=== PATIENT | male | born 1965 | race Caucasian/White ===

== ENCOUNTER 2024-10-17 19:07 | Inpatient (IN) | payer MEDICARE, MEDICAID ==
[~2024-10-17] VITALS: Ht 188 cm; Wt 74.9 kg
--- NOTE | 2024-10-17 19:29 | ED.PDOC ---
History of Present Illness HPI Comments 59 year old male presents to the ED via EMS with a chief complaint of ALOC onset today (10/17/24). Per EMS, patient is being transferred from [facility] due to ALOC and osteomyelitis. Patient was found unresponsive by family member, 911 was called, upon EMS arrival BS was 52, patient was altered. Patient had a partial RT foot amputation. PMHx dementia, CVA, DM. Denies chest pain, shortness of breath, abdominal pain, nausea, vomiting, diarrhea. No other symptoms or modifying factors present at this time. Chief Complaint: ALOC Time Seen by MD: 19:20 Reviewed Notes: Medications, Allergies Allergies: Coded Allergies: NO KNOWN ALLERGIES (Unverified , 10/17/24) Information Source: Patient, Emergency Med Personnel Mode of Arrival: EMS Severity: Moderate Timing: Hours Duration: Since onset Prehospital treatment: Oxygen Vital Signs Vital Signs Date Time Temp Pulse Resp B/P (MAP) Pulse Ox O2 Delivery O2 Flow Rate FiO2 10/17/24 20:20 80 10/17/24 19:45 97.5 16 166/74 (104) 97 97.5 10/17/24 19:45 Nasal Cannula* 2 28 Physical Exam General: Awake, alert and oriented. No acute distress. Skin: Skin in warm, dry and intact without rashes or lesions. HEENT: The head is normocephalic and atraumatic. Conjunctivae are clear without exudates or hemorrhage. Sclera is non-icteric. Neck: Normal range of motion. No JVD. Cardiac: Regular rate Respiratory: No signs of respiratory distress. No Stridor. Extremities: Right foot dressing place. Neurological: The patient is awake, alert and oriented to person, place, and time with normal speech. Speech is clear. There is no facial asymmetry. Psychiatric: Appropriate mood and affect. Good judgement and insight. Review of Systems: REVIEW OF SYSTEMS: No fever, no chills, or fatigue HEENT: No sore throat, no earache, no congestion, no neck pain. Cardiac: No chest pain. No palpitations. Lungs: No shortness of breath, no cough. GI: No nausea, no vomiting, no diarrhea, no constipation, no abdominal pain : No dysuria, frequency, or urgency. No hematuria. Musculoskeletal: No joint pain , no joint swelling, no extremity edema. Skin: No rash, no itching. Neuro: No headache, no dizziness, no weakness Past Medical History PAST MEDICAL HISTORY: CVA, Dementia, DM Surgical History (Other): RT foot partial amputation Family History Family History: Reviewed,noncontributory to illness, No family hx of Cancer, No family hx of DM, No family hx of Heart shelia, No family hx of HTN, No family hx ofKidney shelia, No family hx of Liver shelia, No family hx of Lung shelia, No family hx of Stroke Social History Smoker: Non-Smoker Alcohol: Denies ETOH Use Drugs: Denies Drug Use Lives In: Home Was a procedure done? Was a procedure done?: No EKG EKG : Pulse Rate (adult): 80 Cardiac Rhythm: NSR Hypertrophy: LVH Comments No STEMI Differential Dx Considerations may include: Differential diagnosis includes but is not limited to sepsis, cellulitis, os teomyelitis, uncontrolled diabetes, pneumonia, pulmonary embolism, other X-Ray, Labs, Meds, VS Vital Signs Date Time Temp Pulse Resp B/P (MAP) Pulse Ox O2 Delivery O2 Flow Rate FiO2 10/17/24 20:20 80 10/17/24 20:00 79 10/17/24 19:45 97.5 82 16 166/74 (104) 97 97.5 10/17/24 19:45 16 99 Nasal Cannula* 2 28 10/17/24 19:41 80 10/17/24 19:22 97.6 79 20 160/58 (92) 99 97.6 Lab Test 10/17/24 19:53 10/17/24 19:26 Range/Units White Blood Count 7.8 4.4-10.8 10^3/uL Red Blood Count 3.87 L 4.5-5.90 10^6/uL Hemoglobin 11.0 L 13.5-17.5 g/dL Hematocrit 33.6 L 41.0-53.0 % Mean Corpuscular Volume 86.9 80.0-100.0 fL Mean Corpuscular Hemoglobin 28.5 28.0-32.0 pg Mean Corpuscular Hemoglobin Concent 32.8 32.0-36.0 g/dL Red Cell Distribution Width 15.6 H 11.8-14.3 % Platelet Count 321 140-450 10^3/uL Mean Platelet Volume 6.9 6.9-10.8 fL Neutrophils (%) (Auto) 60.3 37.0-80.0 % Lymphocytes (%) (Auto) 27.9 10.0-50.0 % Monocytes (%) (Auto) 9.2 0.0-12.0 % Eosinophils (%) (Auto) 1.7 0.0-7.0 % Basophils (%) (Auto) 0.9 0.0-2.0 % Neutrophils # (Auto) 4.7 1.6-8.6 10 ^3/uL Lymphocytes # (Auto) 2.2 0.4-5.4 10 ^3/uL Monocytes # (Auto) 0.7 0-1.3 10 ^3/uL Eosinophils # (Auto) 0.1 0-0.8 10 ^3/uL Basophils # (Auto) 0.1 0-0.2 10 ^3/uL Nucleated Red Blood Cells 0.0 % Sodium Level 144 136-145 mmol/L Potassium Level 4.3 3.5-5.1 mmol/L Chloride Level 113 H 98-107 mmol/L Carbon Dioxide Level 22 20-31 mmol/L Anion Gap 9 5-15 Blood Urea Nitrogen 36 H 9-23 mg/dL Creatinine 1.66 H 0.700-1.30 mg/dL Glomerular Filtration Rate Calc 47 >90 mL/min BUN/Creatinine Ratio 21.7 H 10.0-20.0 Serum Glucose 353 H 74-106 mg/dL Lactic Acid Level 1.0 0.4-2.0 mmol/L Calcium Level 9.2 8.7-10.4 mg/dL Total Bilirubin 0.2 0.2-1.0 mg/dL Aspartate Amino Transferase (AST) 19 13-40 U/L Alanine Aminotransferase (ALT) 18 7-40 U/L Alkaline Phosphatase 100 46-116 U/L Total Protein 7.0 5.7-8.2 g/dL Albumin 3.9 3.2-4.8 g/dL Plasma/Serum Blood Alcohol < 3.0 <10 mg/dL POC Glucose 325 H 70-106 mg/dl Time of 1ST Reevaluation: 19:50 Reevaluation 1ST: Unchanged Patient Education/Counseling: Need For Follow Up Family Education/Counseling: No Family Present Departure 1 Departure Time of Disposition: 19:30 Impression: Primary Impression: Cellulitis Additional Impression: Osteomyelitis Disposition: 09 ADMITTED INPATIENT Condition: Stable Comments 59-year-old male with a history of diabetes, presents to the emergency department as a transfer from [facility] with right f oot osteomyelitis. Patient transferred for surgery an MRI services. Patient was started on vancomycin and Zosyn at [facility]. Labs and imaging reports reviewed. Patient admitted to hospitalist service for further treatment, evaluation and monitoring. Extensive evaluation was performed in attempt to identify or rule out: (See differential diagnosis section) The following tests were ordered, and results were reviewed by me and discussed with patient: (See diagnostic results section) The following test were independently interpreted by me: N/A I reviewed and agreed with the following test results read by other providers: N/A I reviewed the following notes from the pt's past medical encounters: Encounter notes from 10/17/2024 at [facility] Additional information was gathered from interviewing the following independent historians: EMS personnel Discussion of management or test interpretation with external physician/other qualified health career education teacher: N/A Addressed an acute or chronic illness that poses a threat to life or bodily function: Cellulitis, osteomyelitis Decision regarding hospitalization or escalation of hospital level of care: Risk and benefits of admission for further treatment of patient's condition was considered. Due to patient's current clinical condition, high risk of decline and poor outcome if discharged and need for further inpatient management and monitoring, patient will be admitted to the hospital. Drug therapy requiring intensive monitoring for toxicity: N/A Parenteral controlled substances: N/A Decision regarding elective major surgery with identified patient or procedure risk factors: N/A Decision regarding emergency major surgery: N/A Decision not to resuscitate or to de-escalate care because of poor prognosis: N/A Diagnosis or treatment significantly limited by social determinants of health: N/A Critical Care Note Critical Care Time?: No Stability Stability form required: No I personally scribed for DEVIN BROWNLEE MD ([email or web address]) on 10/17/24 at 19:29. Electronically submitted by Adore Chavez ([email or web address]). I personally scribed for DEVIN BROWNLEE MD ([email or web address]) on 10/17/24 at 20:20. Electronically submitted by Adore Chavez ([email or web address]). DEVIN BROWNLEE MD October 17, 2024 19:29
[2024-10-17 19:45] VITALS: RESP 16; O2SAT 99
[2024-10-17 20:15] LABS: Basophils # (auto) 0.1 10 ^3/uL (0-0.2); Basophils % (auto) 0.9 % (0.0-2.0); Eosinophils # (auto) 0.1 10 ^3/uL (0-0.8); Eosinophils % (auto) 1.7 % (0.0-7.0); Hematocrit 33.6 % (41.0-53.0); Lymphocytes # (auto) 2.2 10 ^3/uL (0.4-5.4); Lymphocytes % (auto) 27.9 % (10.0-50.0); Mean Corpuscular Hemoglobin 28.5 pg (28.0-32.0); Mean Corpuscular Hgb Conc. 32.8 g/dL (32.0-36.0); Mean Corpuscular Volume 86.9 fL (80.0-100.0); Monocytes # (auto) 0.7 10 ^3/uL (0-1.3); Monocytes % (auto) 9.2 % (0.0-12.0); Neutrophils # (auto) 4.7 10 ^3/uL (1.6-8.6); Neutrophils % (auto) 60.3 % (37.0-80.0); Platelet Count (auto) 321 10^3/uL (140-450); Red Blood Cells 3.87 10^6/uL (4.5-5.90); Red Cell Distribution Width 15.6 % (11.8-14.3); White Blood Cell 7.8 10^3/uL (4.4-10.8)
[2024-10-17 20:30] LABS: Alanine Aminotransferase 18 U/L (7-40); Albumin 3.9 g/dL (3.2-4.8); Alkaline Phosphatase 100 U/L (46-116); Anion Gap 9 (5-15); Aspartate Aminotransferase 19 U/L (13-40); BUN/Creatinine Ratio 21.7 (10.0-20.0); Calcium 9.2 mg/dL (8.7-10.4); Carbon Dioxide 22 mmol/L (20-31); Potassium 4.3 mmol/L (3.5-5.1); Sodium 144 mmol/L (136-145)
[2024-10-17 20:34] LABS: Bilirubin, Total 0.2 mg/dL (0.2-1.0); Blood Alcohol < 3.0 mg/dL (<10); Blood Urea Nitrogen 36 mg/dL (9-23); Chloride 113 mmol/L (98-107); Glucose 353 mg/dL (74-106)
[2024-10-17] MEDS: ACCU-CHEK COMFORT CURVE STRIP VI ONE (21:45)
[2024-10-17] MEDS: DEXTROSE (50%) 50ML SYRG IV ONE (21:45)
[2024-10-17] MEDS ORDERED: VANCOMYCIN PER PHARMACY 0 MG IV SCH (21:45)
[2024-10-17] MEDS ORDERED: ACETAMINOPHEN 325 MG TAB PO PRN (21:45)
[2024-10-17 22:05] VITALS: PULSE 85; RESP 13; O2SAT 99
[2024-10-17] MEDS ORDERED: DEXTROSE (50%) 50ML SYRG IV PRN (22:15)
[2024-10-17] MEDS: InsuLIN REG 1unit/0.01ml Soln (100units/ml) SC ONE (23:07)
[2024-10-17] MEDS: INSULIN LANTUS (GLARGINE) 1 /0.01ml (100units/ml) SC SCH (23:08)
[2024-10-17] MEDS: VANCOMYCIN 1GM/200ML PM 200 ML IV ONE (23:11)
[2024-10-17] MEDS: traZODone HCL 50 MG TAB PO SCH (23:25)
--- NOTE | 2024-10-17 23:35 | DVHHP2 ---
History of Present Illness Reason for Visit: acute metabolic encephalopathy History of Present Illness 59-year-old male with a past medical history of dementia, CVA, and diabetes mellitus, presenting with acute altered mental status. According to EMS, the patient was found unresponsive at home by a family member, who called 911. On EMS arrival, his blood glucose was noted to be 52. He was transferred from [facility], where the initial concern was for ALOC and right foot osteomyelitis. The patient has a history of right foot partial amputation. He denies chest pain, shortness of breath, abdominal pain, nausea, vomiting, and diarrhea. No additional modifying factors identified. Past Medical History: Dementia Cerebrovascular accident Diabetes mellitus (uncontrolled) Right foot amputation Past Surgical History: Right foot partial amputation Social History Smoker: Non-Smoker Alcohol: Denies ETOH Use Drugs: Denies Drug Use Lives In: Home Review of Systems Allergies: Coded Allergies: NO KNOWN ALLERGIES (Unverified , 10/17/24) Medications Current Medications Medications Dose Ordered Sig/Benoit Route Start Time Stop Time Status Last Admin Dose Admin Acetaminophen 650 mg Q6HP PRN PO 10/17/24 21:45 Acetaminophen/ Hydrocodone Bitart 1 tab Q4HP PRN PO 10/17/24 21:45 Enoxaparin Sodium 40 mg DAILY SC 10/18/24 10:00 Insulin Glargine 15 units HS SC 10/17/24 22:00 10/17/24 23:08 15 UNITS Ceftriaxone Sodium 50 ml @ 100 mls/hr DAILY@09 IV 10/18/24 09:00 Vancomycin HCl 0 ml @ 0 mls/hr UD IV 10/17/24 21:45 Amlodipine Besylate 5 mg DAILY PO 10/18/24 10:00 Bupropion HCl 150 mg BID PO 10/18/24 10:00 Trazodone HCl 100 mg HS PO 10/17/24 22:00 10/17/24 23:25 100 MG Diagnostic Test (Pha) 1 strip ACHS 10/18/24 07:00 Insulin Human Regular ACHS SC 10/18/24 07:00 Dextrose 50 ml UD PRN IV 10/17/24 22:15 Exam Vital Signs Vital Signs Date Time Temp Pulse Resp B/P (MAP) Pulse Ox O2 Delivery O2 Flow Rate FiO2 10/17/24 22:05 97.5 85 13 179/76 (110) 99 97.5 Exam Skin: Warm, dry, intact; no rashes or lesions HEENT: Normocephalic, atraumatic. Conjunctiva clear, sclera non-icteric Neck: No JVD, full range of motion Cardiac: RRR, no murmurs Respiratory: No distress, no stridor GI: Soft, non-tender, no guarding or rebound, no organomegaly : Not assessed Extremities: Right foot dressing in place Neuro: Alert and oriented to person, place, and time. Clear speech, no facial asymmetry Psych: Appropriate affect, good judgment and insight MSK: No deformity or tenderness noted Back: No CVA tenderness Labs/Xrays Labs Test 10/17/24 22:50 10/17/24 19:53 Range/Units POC Glucose 359 H 70-106 mg/dl White Blood Count 7.8 4.4-10.8 10^3/uL Red Blood Count 3.87 L 4.5-5.90 10^6/uL Hemoglobin 11.0 L 13.5-17.5 g/dL Hematocrit 33.6 L 41.0-53.0 % Mean Corpuscular Volume 86.9 80.0-100.0 fL Mean Corpuscular Hemoglobin 28.5 28.0-32.0 pg Mean Corpuscular Hemoglobin Concent 32.8 32.0-36.0 g/dL Red Cell Distribution Width 15.6 H 11.8-14.3 % Platelet Count 321 140-450 10^3/uL Mean Platelet Volume 6.9 6.9-10.8 fL Neutrophils (%) (Auto) 60.3 37.0-80.0 % Lymphocytes (%) (Auto) 27.9 10.0-50.0 % Monocytes (%) (Auto) 9.2 0.0-12.0 % Eosinophils (%) (Auto) 1.7 0.0-7.0 % Basophils (%) (Auto) 0.9 0.0-2.0 % Neutrophils # (Auto) 4.7 1.6-8.6 10 ^3/uL Lymphocytes # (Auto) 2.2 0.4-5.4 10 ^3/uL Monocytes # (Auto) 0.7 0-1.3 10 ^3/uL Eosinophils # (Auto) 0.1 0-0.8 10 ^3/uL Basophils # (Auto) 0.1 0-0.2 10 ^3/uL Nucleated Red Blood Cells 0.0 % Sodium Level 144 136-145 mmol/L Potassium Level 4.3 3.5-5.1 mmol/L Chloride Level 113 H 98-107 mmol/L Carbon Dioxide Level 22 20-31 mmol/L Anion Gap 9 5-15 Blood Urea Nitrogen 36 H 9-23 mg/dL Creatinine 1.66 H 0.700-1.30 mg/dL Glomerular Filtration Rate Calc 47 >90 mL/min BUN/Creatinine Ratio 21.7 H 10.0-20.0 Serum Glucose 353 H 74-106 mg/dL Lactic Acid Level 1.0 0.4-2.0 mmol/L Calcium Level 9.2 8.7-10.4 mg/dL Total Bilirubin 0.2 0.2-1.0 mg/dL Aspartate Amino Transferase (AST) 19 13-40 U/L Alanine Aminotransferase (ALT) 18 7-40 U/L Alkaline Phosphatase 100 46-116 U/L Total Protein 7.0 5.7-8.2 g/dL Albumin 3.9 3.2-4.8 g/dL Plasma/Serum Blood Alcohol < 3.0 <10 mg/dL Assessment/Plan Assessment/Plan #Acute metabolic encephalopathy due to hypoglycemia and possible sepsis #Sepsis due to RT foot osteomyelitis #Uncontrolled diabetes mellitus #Ho Stroke #Ho dementia #MARIANO due to VMN, no baseline creatinine #Anxiety #Depression #Severe deconditioning Admit Telemetry Diabetic diet Podiatry consult Wound consult PT evaluation Ceftriaxone + Vancomycin Amlodipine Lantus 15 UI SC ISS Enoxaparin SC Trazodone Bupropion Case dicussed with Dr Turner Full code Plan discussed with: Patient, Other (rn) My Orders Orders - NAIDA INIGUEZ RESIDENT Procedure Category Date Status Time Admit ADMIT 10/17/24 Transmitted 21:32 Code Status CODE 10/17/24 Transmitted 21:32 Vital Signs AURA 10/17/24 In Process 21:32 Review Orders With AURA 10/17/24 In Process Adm. 21:32 Consistent DIET 10/18/24 Transmitted Carb(Ccho)Diabetes Breakfast Acetaminophen Tablet PHA 10/17/24 In Process (Tylenol Tablet) 21:45 Notify Of Changes AURA 10/17/24 In Process From Base 21:32 Advance Directive AURA 5/7/25 In Process 21:32 Patient Condition ORDERS 10/17/24 Transmitted 21:32 Allergies AURA 10/17/24 In Process 21:32 Hydrocodone-Acet PHA 10/17/24 In Process 5/325mg Tab (Argyle 21:45 Enoxaparin Sodium PHA 10/18/24 In Process (Lovenox) 10:00 Insulin Lantus PHA 10/17/24 In Process (Glargine) (Lantus) 22:00 Glucose Blood PHA 10/17/24 In Process (Accu-Chek Comfort 21:45 Ceftriaxone 1gm/50ml PHA 10/18/24 In Process D5w (Rocephin) 09:00 Vancomycin Per PHA 10/17/24 In Process Pharmacy 21:45 Bupropion Tablet PHA 10/18/24 In Process (Wellbutrin Tablet) 10:00 Trazodone Hcl PHA 10/17/24 In Process (Desyrel) 22:00 * Wound Consult CONS 10/17/24 Transmitted Wound Culture W/ Gs ISELA 10/17/24 Logged 21:36 *Podiatry Consult CONS 10/17/24 Transmitted Musson(Dvmg) 21:36 Amlodipine Tablet PHA 10/18/24 In Process (Norvasc Tablet) 10:00 Vancomycin,Random LAB 10/18/24 Verified 04:00 Glucose Blood PHA 10/18/24 In Process (Accu-Chek Comfort 07:00 Dextrose 50% Syringe PHA 10/17/24 In Process 22:15 Insulin R (Human) PHA 10/18/24 In Process (Insulin R) 07:00 Date of Service: October 17, 2024 Billing Provider: OSEAS TURNER MD Common Visit Codes: 59974-WQOQDPF INP/OBS CARE (HIGH) Secondary Visit Codes: 26735-CECRAWPJ CARE PLAN 30 MINUTES NAIDA INIGUEZ October 17, 2024 23:35
[2024-10-17 23:50] VITALS: BP 157/63
[2024-10-18] VITALS (9 sets, daily range): BP systolic 136–169; BP diastolic 55–76; PULSE 70–79; RESP 16–18; TEMP 97.2–99.1; O2SAT 96–100
[2024-10-18] MEDS: ACCU-CHEK COMFORT CURVE STRIP VI SCH ×2 (06:01→11:49)
[2024-10-18] MEDS: InsuLIN REG 1unit/0.01ml Soln (100units/ml) SC SCH ×2 (06:26→12:00)
--- NOTE | 2024-10-18 06:39 | ECG ---
[facility] Test Date: 2024-10-17 Test Time: 19:41:46 Pat Name: MELODY CHERRY Department: ED Room: 0219T B Gender: M Note Specialist: CHUCK : 1965 Requested By: DEVIN BROWNLEE Order Number: [id number] Reading MD: Jacinto Wright Measurements Intervals [place] Rate: 80 P: -7 WI: 159 QRS: 48 QRSD: 98 T: 80 QT: 392 QTc: 453 Interpretive Statements Sinus rhythm RSR' in V1 or V2, probably normal variant Left ventricular hypertrophy Baseline wander in lead(s) V3 Electronically Signed On 10-18-2024 21:10:52 PDT by Jacinto Wright Please click the below link to view image of tracing.
[2024-10-18 06:45] LABS: Basophils # (auto) 0.1 10 ^3/uL (0-0.2); Basophils % (auto) 1.8 % (0.0-2.0); Eosinophils # (auto) 0.3 10 ^3/uL (0-0.8); Eosinophils % (auto) 4.6 % (0.0-7.0); Hematocrit 31.9 % (41.0-53.0); Hemoglobin 10.3 g/dL (13.5-17.5); Lymphocytes # (auto) 2.1 10 ^3/uL (0.4-5.4); Lymphocytes % (auto) 31.5 % (10.0-50.0); Mean Corpuscular Hemoglobin 27.7 pg (28.0-32.0); Mean Corpuscular Hgb Conc. 32.2 g/dL (32.0-36.0); Mean Corpuscular Volume 85.8 fL (80.0-100.0); Monocytes # (auto) 0.7 10 ^3/uL (0-1.3); Monocytes % (auto) 10.9 % (0.0-12.0); Neutrophils # (auto) 3.4 10 ^3/uL (1.6-8.6); Neutrophils % (auto) 51.2 % (37.0-80.0); Platelet Count (auto) 317 10^3/uL (140-450); Red Blood Cells 3.71 10^6/uL (4.5-5.90); Red Cell Distribution Width 15.6 % (11.8-14.3); White Blood Cell 6.7 10^3/uL (4.4-10.8)
[2024-10-18 06:55] LABS: Alanine Aminotransferase 16 U/L (7-40); Albumin 3.7 g/dL (3.2-4.8); Alkaline Phosphatase 90 U/L (46-116); Anion Gap 10 (5-15); Aspartate Aminotransferase 15 U/L (13-40); BUN/Creatinine Ratio 23.2 (10.0-20.0); Carbon Dioxide 23 mmol/L (20-31); Potassium 3.8 mmol/L (3.5-5.1); Total Protein 6.7 g/dL (5.7-8.2)
[2024-10-18 07:01] LABS: Blood Urea Nitrogen 36 mg/dL (9-23); Chloride 112 mmol/L (98-107); Glucose 328 mg/dL (74-106); Sodium 145 mmol/L (136-145)
[2024-10-18 07:02] LABS: Bilirubin, Total 0.2 mg/dL (0.2-1.0); Calcium 8.6 mg/dL (8.7-10.4)
[2024-10-18] MEDS: amLODIPine BESYLATE 5 MG TAB PO SCH (08:30)
[2024-10-18] MEDS: buPROPion HCL 75 MG TAB PO SCH (08:30)
[2024-10-18] MEDS: ENOXAPARIN SOD 40 MG/0.4 ML SYRINGE SC SCH (08:30)
[2024-10-18] MEDS: cefTRIAXone 1GM/50ML D5W 50 ML IV SCH (08:30)
[2024-10-18 08:36] LABS: INR 1.08 (0.9-1.15); Partial Thromboplastin Time 29.3 SEC (24.5-34.5); Prothrombin Time 11.4 sec (9.3-11.8)
[2024-10-18 08:54] LABS: Free T4 (Free Thyroxine) 1.23 ng/dL (0.89-1.76); T3 Total 0.85 ng/mL (0.60-1.81)
--- NOTE | 2024-10-18 09:01 | DVH ---
CHEST RADIOGRAPH Indication: pre op, pain Technique: Single frontal view of the chest was obtained Comparison: None FINDINGS: Lines and Tubes: None Lungs: No focal consolidation. Pleura: No effusion. No pneumothorax. Cardiomediastinal contours: Unremarkable Bones: No acute osseous abnormality. IMPRESSION: No acute cardiopulmonary disease.
--- NOTE | 2024-10-18 09:17 | DVHPNRES ---
Progress Note Date Seen: October 18, 2024 Resident Creating Document: CASSIE BAUMANN RESIDENT Medical Necessity Reason Pt with a Central, PICC or Fol: No Subjective Review of Systems Dayanara Fleming a six 18-year-old with a PMH of dementia, CVA, type 1 DM presented to the ED with a chief complaints of AMS. According to EMS, the patient was found unresponsive at home by a family member, who called 911. On EMS arrival, his blood glucose was noted to be 52. He was transferred from [facility], where the initial concern was for ALOC and right foot osteomyelitis. The patient has a history of right foot partial amputation. He denies chest pain, shortness of breath, abdominal pain, nausea, vomiting, and diarrhea. No additional modifying factors identified. PMH: Dementia, CVA, type 1 DM, chronic diabetic foot wound PSH: Right foot all toes amputation Family history: Reviewed, noncontributory Personal history: Lives at home. Denies smoking, alcohol and other drug abuse Allergies: No known allergies Patient seen and examined at the bedside. Patient is drowsy but able to answer few questions but slowly. At this time patient reported no new complaints. Three views right foot CT from [facility] showed findings/ to 0 five to mellitus and 5th metatarsal. Consulted Podiatry for further evaluation Patient currently on vancomycin, Rocephin Flagyl and Changes from previous H/P or p: No Changes Objective vital signs Vital Sign Date Time Temp Pulse Resp B/P (MAP) Pulse Ox O2 Delivery O2 Flow Rate FiO2 10/18/24 08:30 148/78 10/18/24 05:00 97.7 79 17 99 97.7 10/18/24 00:28 Nasal Cannula* 2 28 Total Intake and Output 10/17/24 10/17/24 10/18/24 15:00 23:00 07:00 Intake Total 700 ml Balance 700 ml medications Current Medications Medications Dose Ordered Sig/Benoit Route Start Time Stop Time Status Last Admin Dose Admin Acetaminophen 650 mg Q6HP PRN PO 10/17/24 21:45 Acetaminophen/ Hydrocodone Bitart 1 tab Q4HP PRN PO 10/17/24 21:45 Enoxaparin Sodium 40 mg DAILY SC 10/18/24 10:00 10/18/24 08:30 40 MG Ceftriaxone Sodium 50 ml @ 100 mls/hr DAILY@09 IV 5/8/25 09:00 10/18/24 08:30 100 MLS/HR Vancomycin HCl 0 ml @ 0 mls/hr UD IV 10/17/24 21:45 Amlodipine Besylate 5 mg DAILY PO 10/18/24 10:00 10/18/24 08:30 5 MG Bupropion HCl 150 mg BID PO 10/18/24 10:00 10/18/24 08:30 150 MG Trazodone HCl 100 mg HS PO 10/17/24 22:00 10/17/24 23:25 100 MG Diagnostic Test (Pha) 1 strip ACHS 10/18/24 07:00 10/18/24 06:01 1 STRIP Insulin Human Regular ACHS SC 10/18/24 07:00 10/18/24 06:26 8 UNITS Dextrose 50 ml UD PRN IV 10/17/24 22:15 Insulin Glargine 15 units BID SC 10/18/24 10:00 Metronidazole 100 ml @ 100 mls/hr Q8HR IV 10/18/24 14:00 Hydralazine HCl 10 mg Q6HP PRN IV 10/18/24 08:30 Examination Pt is lying on bed General Appearance: Alert,But not fully Oriented, Cooperative, Not in acute distress HEENT: Atraumatic, Mucous membranes moist/pink Respiratory: Clear to auscultation, Normal air movement, No added sounds Cardiovascular: Regular rate, Normal S1, Normal S2, No murmurs Abdominal: Active bowel sounds, Soft, no distention, no tenderness Extremities: right foot wrapped in bandage Neuro: Normal speech, sensorimotor deficits none Psych/Mental Status: Mental status NL, Mood NL Nurse was there as kevinerone during examination laboratory and microbiology Laboratory Tests 10/18/24 05:45 Test 10/18/24 05:45 Range/Units Serum Glucose 328 H 74-106 mg/dL Labs and/or images reviewed: Labs reviewed by me, Image(s) reviewed by me Problem List/Assessment/Plan Problem List/Assessment/Plan # Acute metabolic encephalopathy due to hypoglycemia # Sepsis can not be ruled out # RT foot osteomyelitis # Chronic diabetic foot ulcer # Uncontrolled type 1 DM with HbA1c 8.9 - Three views right foot CT from [facility] showed findings/ to 0 five to mellitus and 5th metatarsal. - Consulted Podiatry for further evaluation - Patient currently on vancomycin, Rocephin Flagyl - Accu-Cheks and ISS - Lantus 15 units - wound consult and wound/ blood cultures -Head CT pending # uncontrolled hypertension/ hypertensive urgency - continuously monitor blood pressure - resume home medication amlodipine - hydralazine 10 mg IV p.r.n. if SBP more than 160 # MARIANO likely due to vasomotor unknown baseline creatinine - monitor lab for now - Please be cautious on nephrotoxic agents - kidney usg # history of CVA, dementia # severe deconditioning - delirium precautions # anxiety, depression - patient is on bupropion and trazodone No GI PPX needed Lovenox Diabetic diet if tolerates Goals of care discussed with the patient for more than 29 minutes: Full code status Case discussed with Dr. Prince, patient and RN Plan discussed with: Patient My Orders My Orders Orders - CASSIE BAUMANN RESIDENT Procedure Category Date Status Time Blood Culture ISELA 10/18/24 In Process 07:58 Metronidazole PHA 10/18/24 In Process 500mg/100ml (Flagyl 14:00 Urinalysis LAB 10/18/24 Logged 08:04 Chest Xray 1 View XY 10/18/24 Resulted 08:04 Hydralazine Injection PHA 10/18/24 In Process (Apresoline Inject 08:30 CASSIE BAUMANN RESIDENT October 18, 2024 09:17
[2024-10-18] MEDS: INSULIN LANTUS (GLARGINE) 1 /0.01ml (100units/ml) SC SCH (10:00)
[2024-10-18] MEDS ORDERED: DEXTROSE (50%) 50ML SYRG IV PRN (11:15)
--- NOTE | 2024-10-18 12:39 | DVH ---
INDICATION: severity of kidney damage TECHNIQUE: Multiple real-time sonographic images of the kidneys and bladder were obtained. COMPARISON: None FINDINGS: The right kidney measures 12 cm in length, which is normal in size. There is increased echo genicity of the right kidney. No hydronephrosis. Trace right perinephric fluid. The left kidney measures 11 cm in length, which is normal in size. There is increased echogenicity of the left kidney. No hydronephrosis. Urinary bladder is underdistended which limits evaluation. IMPRESSION: Echogenic bilateral kidneys suggestive of chronic medical renal disease. No hydronephrosis.
[2024-10-18] MEDS: metroNIDAZOLE 500MG/100ML 100 ML IV SCH (13:51)
[2024-10-18] MEDS: hydrALAZINE HCL 20 MG/ML VL IV PRN (14:08)
--- NOTE | 2024-10-18 14:20 | DVH ---
Bilateral Lower Extremity Arterial Duplex Date: 10/18/2024 11:23 AM Clinical History: PAD Comparison: None Findings: Duplex Doppler evaluation including color Doppler and spectral/pulsed waveform analysis of the lower extremity arteries was performed. There is diffuse atherosclerotic calcification disease. Biphasic waveforms in the right GEOLOGICAL DRAFTER, SFA and popliteal arteries. Monophasic waveform in the right yara salis pedis artery. Biphasic waveforms in the left GEOLOGICAL DRAFTER, SFA, popliteal arteries. Monophasic waveform in the left anterior tibial arteries. RIGHT: Peak systolic velocities are as follows: GEOLOGICAL DRAFTER 121 cm/s Deep femoral 133 cm/s SFA proximal 183 cm/s SFA mid-portion 103 cm/s SFA distal 82 cm/s Popliteal 79 cm/s Posterior tibial no flow visualized Dorsalis pedis 103 cm/s LEFT: Peak systolic velocities are as follows: GEOLOGICAL DRAFTER 126 cm/s Deep femoral 130 cm/s SFA proximal 125 cm/s SFA mid-portion 92 cm/s SFA distal 75 cm/s Popliteal 72 cm/s Posterior tibial no flow visualized Dorsalis pedis 121 cm/s IMPRESSION: 1. Findings of moderate to advanced peripheral arterial disease most pronounced within bilateral infr apopliteal/tibial vasculature. Occlusion of the bilateral posterior tibial arteries. High-grade steno ses of the bilateral anterior tibial / dorsalis pedis arteries. 2. Moderate grade stenosis of the proximal right SFA
[2024-10-18] MEDS ORDERED: AMLO1TAB22 PO (16:22)
[2024-10-18] MEDS ORDERED: BACL10TA PO (16:22)
[2024-10-18] MEDS ORDERED: ASPI-543 PO (16:22)
--- NOTE | 2024-10-18 16:26 | DVH ---
EXAM: CT HEAD WITHOUT CONTRAST INDICATION: Altered, fall TECHNIQUE: CT of the head without intravenous contrast. Radiation Dose Information: CT Dose: CTDI volume is 60.81 mGy. Dose-length product is 974.73 mGy*cm The dose indicators for CT are the volume Computed Tomography (CT) Dose Index (CTDIvol) and the Dose Length Product (DLP), and are measured in units of mGy and mGy-cm, respectively. These indicators are not patient dose, but values generated from the CT scanner acquisition factors. The report includes radiation exposure data for exposures received during this examination. COMPARISON: None FINDINGS: There is no evidence of acute intracranial hemorrhage, extra-axial collection, mass effect, midline s hift, herniation or hydrocephalus. The ventricles, sulci and cisterns are age appropriate. The newton-white differentiation is intact. Patchy periventricular and subcortical white matter hypoattenuation is nonspecific but may be related to small vessel ischemic disease. The visualized paranasal sinuses and mastoid air cells are clear. The surrounding soft tissues and osseous structures are unremarkable. IMPRESSION: No acute intracranial abnormality.
[2024-10-18] MEDS ORDERED: BENA5TAB9 PO (16:38)
--- NOTE | 2024-10-18 16:40 | DVHINCON2 ---
Date Seen: October 18, 2024 Reason for Consultation Foot wound History of Present Illness 59-year-old male with a past medical history of dementia, CVA, and diabetes mellitus, presenting with acute altered mental status. According to EMS, the patient was found unresponsive at home by a family member, who called 911. On EM S arrival, his blood glucose was noted to be 52. He was transferred from [facility], where the initial concern was for ALOC and right foot osteomyelitis. The patient has a history of right foot partial amputation. He denies chest pain, shortness of breath, abdominal pain, nausea, vomiting, and diarrhea. No additional modifying factors identified. Past Medical History See H&P Past Surgical History See H&P Family History: Diabetes mellitus G8 MOTHER G8 FATHER Allergies: Coded Allergies: NO KNOWN ALLERGIES (Unverified , 10/17/24) Home Meds Reported Medications Baclofen (Baclofen) 10 Mg Tab, 10 MG PO Q8HP for 30 Days, MG 10/18/24 Aspirin (Aspir-Low) 81 Mg Tab, 81 MG PO DAILY for 30 Days, MG 10/18/24 Amlodipine Besylate (Amlodipine Besylate) 5 Mg Tab, 5 MG PO BID for 30 Days, MG 10/18/24 Current Medications Current Medications Medications (Trade) Dose Ordered Sig/Benoit Route PRN Reason Start Time Stop Time Status Last Admin Acetaminophen (Tylenol Tablet) 650 mg Q6HP PRN PO PAIN SCALE 1-3 OR TEMP>100.4 10/17/24 21:45 Acetaminophen/ Hydrocodone Bitart ([place] 5/325MG Tab) 1 tab Q4HP PRN PO MODERATE PAIN (4-6 PAIN SCALE) 10/17/24 21:45 Enoxaparin Sodium (Lovenox) 40 mg DAILY SC 10/18/24 10:00 10/18/24 08:30 Insulin Glargine (Lantus) 15 units HS SC 10/17/24 22:00 10/18/24 06:46 DC 10/17/24 23:08 Ceftriaxone Sodium 50 ml @ 100 mls/hr DAILY@09 IV 10/18/24 09:00 10/18/24 08:30 Vancomycin HCl 0 ml @ 0 mls/hr UD IV 10/17/24 21:45 Amlodipine Besylate (Norvasc Tablet) 5 mg DAILY PO 10/18/24 10:00 10/18/24 08:30 Bupropion HCl (Wellbutrin Tablet) 150 mg BID PO 10/18/24 10:00 10/18/24 08:30 Trazodone HCl (Desyrel) 100 mg HS PO 10/17/24 22:00 10/17/24 23:25 Diagnostic Test (Pha) (Accu-Chek Comfort Curve T) 1 strip ACHS 10/18/24 07:00 10/18/24 11:07 DC 10/18/24 06:01 Insulin Human Regular (InsuLIN R) ACHS SC 10/18/24 07:00 10/18/24 11:07 DC 10/18/24 06:26 Dextrose 50 ml UD PRN IV Blood Sugar LESS THAN 60 10/17/24 22:15 10/18/24 11:07 DC Insulin Glargine (Lantus) 15 units BID SC 10/18/24 10:00 10/18/24 10:00 Metronidazole 100 ml @ 100 mls/hr Q8HR IV 10/18/24 14:00 10/18/24 13:51 Hydralazine HCl (Apresoline Injection) 10 mg Q6HP PRN IV SBP>160 10/18/24 08:30 10/18/24 14:08 Diagnostic Test (Pha) (Accu-Chek Comfort Curve T) 1 strip Q6HR 10/18/24 12:00 10/18/24 11:49 Insulin Human Regular (InsuLIN R) Q6HR SC 10/18/24 12:00 10/18/24 12:00 Dextrose 50 ml UD PRN IV Blood Sugar LESS THAN 60 10/18/24 11:15 Vital Signs Vital Signs Date Time Temp Pulse Resp B/P (MAP) Pulse Ox O2 Delivery O2 Flow Rate FiO2 10/18/24 14:08 164/82 10/18/24 13:00 97.2 75 18 99 97.2 10/18/24 08:00 Nasal Cannula* 2 28 Physical Exam Dermatological: Skin is dry with mild erythema and some maceration around the wound site No gross deformities noted Mild non-pitting edema present bilaterally amputation and eschar on the right foot with cellulitis streaking Vascular: Dorsalis pedis and posterior tibial Nonpalpable bilaterally Capillary refill is under 2 seconds Skin temperature is warm bilaterally Neurologic: Protective sensation is absent on the plantar forefoot bilaterally Monofilament testing reveals decreased sensation in multiple plantar sites Musculoskeletal: Range of motion at the ankle and MTP joints is within normal limits. Strength is 5/5 in all tested muscle groups. Gait is antalgic due to offloading of the affected limb. Labs/Diagnostic Data Labs Test 10/18/24 12:17 10/18/24 10:55 10/18/24 05:45 10/17/24 19:53 Range/Units HIV (1&2) Antibody Negative Negative POC Glucose 160 H 70-106 mg/dl White Blood Count 6.7 4.4-10.8 10^3/uL Red Blood Count 3.71 L 4.5-5.90 10^6/uL Hemoglobin 10.3 L 13.5-17.5 g/dL Hematocrit 31.9 L 41.0-53.0 % Mean Corpuscular Volume 85.8 80.0-100.0 fL Mean Corpuscular Hemoglobin 27.7 L 28.0-32.0 pg Mean Corpuscular Hemoglobin Concent 32.2 32.0-36.0 g/dL Red Cell Distribution Width 15.6 H 11.8-14.3 % Platelet Count 317 140-450 10^3/uL Mean Platelet Volume 7.2 6.9-10.8 fL Neutrophils (%) (Auto) 51.2 37.0-80.0 % Lymphocytes (%) (Auto) 31.5 10.0-50.0 % Monocytes (%) (Auto) 10.9 0.0-12.0 % Eosinophils (%) (Auto) 4.6 0.0-7.0 % Basophils (%) (Auto) 1.8 0.0-2.0 % Neutrophils # (Auto) 3.4 1.6-8.6 10 ^3/uL Lymphocytes # (Auto) 2.1 0.4-5.4 10 ^3/uL Monocytes # (Auto) 0.7 0-1.3 10 ^3/uL Eosinophils # (Auto) 0.3 0-0.8 10 ^3/uL Basophils # (Auto) 0.1 0-0.2 10 ^3/uL Nucleated Red Blood Cells 0.0 % Prothrombin Time 11.4 9.3-11.8 sec Prothrombin Time INR 1.08 0.9-1.15 Activated Partial Thromboplast Time 29.3 24.5-34.5 SEC Sodium Level 145 136-145 mmol/L Potassium Level 3.8 3.5-5.1 mmol/L Chloride Level 112 H 98-107 mmol/L Carbon Dioxide Level 23 20-31 mmol/L Anion Gap 10 5-15 Blood Urea Nitrogen 36 H 9-23 mg/dL Creatinine 1.55 H 0.700-1.30 mg/dL Glomerular Filtration Rate Calc 51 >90 mL/min BUN/Creatinine Ratio 23.2 H 10.0-20.0 Serum Glucose 328 H 74-106 mg/dL Hemoglobin A1c 8.9 H <5.7 % A1C Calcium Level 8.6 L 8.7-10.4 mg/dL Total Bilirubin 0.2 0.2-1.0 mg/dL Aspartate Amino Transferase (AST) 15 13-40 U/L Alanine Aminotransferase (ALT) 16 7-40 U/L Alkaline Phosphatase 90 46-116 U/L Total Protein 6.7 5.7-8.2 g/dL Albumin 3.7 3.2-4.8 g/dL Thyroid Stimulating Hormone (TSH) 0.42 L 0.55-4.78 uIU/mL Free Thyroxine (T4) Calculated 1.23 0.89-1.76 ng/dL Total Triiodothyronine (TT3) 0.85 0.60-1.81 ng/mL Random Vancomycin Level 19.8 H 5-10 ug/mL Lactic Acid Level 1.0 0.4-2.0 mmol/L Plasma/Serum Blood Alcohol < 3.0 <10 mg/dL Problems(with codes): (1) Cellulitis (2) Osteomyelitis (3) Family history of diabetes mellitus Plan/Recommendation ASSESSMENT: Patient is a [age] year old seen on the floor for a worsening ulcer PLAN: - The patients chart was reviewed, clinical findings were discussed with the patient, the etiologies of the conditions were discussed in detail, and a treatment plan was agreed to at this time, with both oral and written instructions provided. - reviewed advanced imaging - recommend we get vascular involved in a CTA lower extremity - continue IV antibiotics - would not perform anything surgical or any debridements until adequate blood flow All questions were answered and concerns addressed to the patient's satisfaction. The patient was given the phone number to the clinic and was told how to make contact with the clinic should any concerns or questions arise. Patient understands that if any questions or concerns arise prior to the next appointment, we should be contacted immediately. FOLLOW-UP: Continue to follow while inpatient Plan discussed with: Patient Date of Service: October 18, 2024 Billing Provider: BETSY ELLIS DPM Common Visit Codes: CONSULT ONLY Consultation Codes: [id number] CONSULT <80MIN BETSY ELLIS DPM October 18, 2024 16:40
[2024-10-18] MEDS ORDERED: INSLISPI SC (16:57)
[2024-10-18] MEDS ORDERED: LEVO50TA7 PO (16:57)
[2024-10-18] MEDS ORDERED: INSUINJ37 SC (16:57)
[2024-10-18] MEDS ORDERED: LISI2.5T47 PO (16:57)
[2024-10-18] MEDS ORDERED: ROSU20TA14 PO (16:57)
[2024-10-18] MEDS ORDERED: GABA-1308 PO (16:57)
[2024-10-18] MEDS ORDERED: CARV-216 PO (16:57)
[2024-10-18] MEDS ORDERED: HYDR25TA87 PO (16:57)
[2024-10-18] MEDS ORDERED: BUPR-413 PO (16:57)
[2024-10-18] MEDS ORDERED: PANT1INJ3 IV (16:57)
[2024-10-18] MEDS ORDERED: HYDR50TA32 PO (16:57)
[2024-10-19] VITALS (8 sets, daily range): BP systolic 159–180; BP diastolic 64–77; PULSE 68–83; RESP 16–19; TEMP 97.8–99; O2SAT 93–98
[2024-10-19 06:19] LABS: Basophils # (auto) 0.2 10 ^3/uL (0-0.2); Basophils % (auto) 1.8 % (0.0-2.0); Eosinophils # (auto) 0.6 10 ^3/uL (0-0.8); Eosinophils % (auto) 6.8 % (0.0-7.0); Hematocrit 32.8 % (41.0-53.0); Lymphocytes # (auto) 2.7 10 ^3/uL (0.4-5.4); Lymphocytes % (auto) 32.3 % (10.0-50.0); Mean Corpuscular Hemoglobin 28.2 pg (28.0-32.0); Mean Corpuscular Hgb Conc. 33.4 g/dL (32.0-36.0); Mean Corpuscular Volume 84.3 fL (80.0-100.0); Monocytes # (auto) 0.8 10 ^3/uL (0-1.3); Monocytes % (auto) 9.9 % (0.0-12.0); Neutrophils # (auto) 4.1 10 ^3/uL (1.6-8.6); Neutrophils % (auto) 49.2 % (37.0-80.0); Platelet Count (auto) 350 10^3/uL (140-450); Red Cell Distribution Width 15.5 % (11.8-14.3); White Blood Cell 8.3 10^3/uL (4.4-10.8)
[2024-10-19 06:26] LABS: Alanine Aminotransferase 12 U/L (7-40); Albumin 3.6 g/dL (3.2-4.8); Alkaline Phosphatase 80 U/L (46-116); Anion Gap 12 (5-15); Aspartate Aminotransferase 18 U/L (13-40); BUN/Creatinine Ratio 21.5 (10.0-20.0); Carbon Dioxide 22 mmol/L (20-31); Magnesium 1.7 mg/dL (1.6-2.6); Sodium 144 mmol/L (136-145); Total Protein 6.5 g/dL (5.7-8.2)
[2024-10-19 06:41] LABS: Bilirubin, Total 0.2 mg/dL (0.2-1.0); Blood Urea Nitrogen 28 mg/dL (9-23); Calcium 8.6 mg/dL (8.7-10.4); Chloride 110 mmol/L (98-107); Glucose 55 mg/dL (74-106); Potassium 3.4 mmol/L (3.5-5.1)
[2024-10-19] MEDS: POTASSIUM EFFERVESENT TAB 25 MEQ PO ONE (08:52)
[2024-10-19] MEDS: HYDROcodone-ACET 5/325MG TAB PO PRN (08:53)
[2024-10-19] MEDS ORDERED: DEXTROSE (50%) 50ML SYRG IV PRN (10:45)
[2024-10-19] MEDS: LORazepam 2MG/ML-1ML VIAL IM ONE (10:47)
[2024-10-19] MEDS: ACCU-CHEK COMFORT CURVE STRIP VI SCH (11:30)
[2024-10-19] MEDS ORDERED: IOHEXOL 350 MG/ML 100ML IJ ONE ×2 (11:48→12:13)
[2024-10-19] MEDS: InsuLIN REG 1unit/0.01ml Soln (100units/ml) SC SCH (12:57)
--- NOTE | 2024-10-19 13:46 | DVH ---
Indication: to evaluate PAD Technique: CT axial images of the pelvis and lower are obtained without contrast. Coronal and sagitta l reformats were obtained. Radiation Dose Information: CTDI volume is 8.43 mGy. Dose-length product is 1130.76 mGy*cm Comparison: None FINDINGS: The infrarenal abdominal aorta demonstrates extensive atherosclerotic calcification disease. The righ t common, external iliac arteries demonstrate no high-grade stenoses. The left common and external il iac arteries demonstrate no high-grade stenosis. Right FOREX TRADER demonstrates mild less than 50% stenosis. The right SFA demonstrates multifocal moderate t o severe stenosis, 50 to 80%. The right popliteal artery demonstrates multifocal moderate to high-gr crystal stenosis, 50 80%. The right anterior tibial artery is patent to the level of the ankle. Right po sterior tibial artery is occluded. Right tibioperoneal artery demonstrates high-grade stenosis up to 90% stenosis. Right peroneal artery demonstrates multifocal moderate high-grade stenosis, up to 90% . The left FOREX TRADER demonstrates mild less than 50% stenosis. Right SFA demonstrates multifocal moderate gr crystal stenosis, 50-70% stenosis. Left popliteal artery demonstrates multifocal moderate high-grade sten osis, 50 90% most pronounced along the distal left popliteal artery. The left posterior tibial arter ies occluded. Left anterior tibial artery is patent to the level of the left ankle. Left tibioperone al trunk demonstrates high-grade stenosis, 80-90% stenosis. Left peroneal artery demonstrates mild le ss than 50% stenosis. Large volume stool within the colon. Bladder distended. Large volume stool in the rectum. Presacral edema. Bilateral femur intertrochanteric screws, intramedullary rods. Moderate bilateral sacroiliac degenera tive joint disease. Moderate to severe degenerative changes of the bilateral hips. IMPRESSION: 1. Severe peripheral arterial disease involving the bilateral SFA, popliteal, tibioperoneal, posterio r tibial arteries as described. This includes occlusion of the bilateral posterior tibial arteries. M ultifocal moderate high-grade stenoses of the bilateral SFA and popliteal arteries. Single-vessel run off to the bilateral feet through the anterior tibial arteries 2. Large volume stool within the colon, especially in the rectum.
--- NOTE | 2024-10-19 14:30 | DVHPNRES ---
Progress Note Date Seen: October 19, 2024 Resident Creating Document: CASSIE BAUMANN RESIDENT Medical Necessity Reason Pt with a Central, PICC or Fol: No Subjective Review of Systems Patient seen and examined at the bedside. Patient reported mild improvement in his pain but reported no new complaints. Lower extremity duplex showed severe PID, Podiatry excellence consultant evaluated the patient and advised to do CT angiogram of aorta and lower extremities. which showed Severe peripheral arterial disease involving the bilateral SFA, popliteal, tibioperoneal, posterior tibial arteries, consulted vascular surgeon. Patient reports: No new complaints Objective vital signs Vital Sign Date Time Temp Pulse Resp B/P (MAP) Pulse Ox O2 Delivery O2 Flow Rate FiO2 10/19/24 08:54 170/71 10/19/24 05:00 98.6 70 16 98 98.6 10/18/24 20:00 Room Air* 0 21 Total Intake and Output 10/18/24 10/18/24 10/19/24 15:00 23:00 07:00 Intake Total 900 ml 300 ml Output Total 550 ml Balance 900 ml -250 ml medications Current Medications Medications Dose Ordered Sig/Benoit Route Start Time Stop Time Status Last Admin Dose Admin Acetaminophen 650 mg Q6HP PRN PO 10/17/24 21:45 Acetaminophen/ Hydrocodone Bitart 1 tab Q4HP PRN PO 10/17/24 21:45 10/19/24 12:54 1 TAB Enoxaparin Sodium 40 mg DAILY SC 10/18/24 10:00 10/19/24 08:52 40 MG Ceftriaxone Sodium 50 ml @ 100 mls/hr DAILY@09 IV 10/18/24 09:00 10/19/24 08:51 100 MLS/HR Vancomycin HCl 0 ml @ 0 mls/hr UD IV 10/17/24 21:45 Amlodipine Besylate 5 mg DAILY PO 10/18/24 10:00 10/19/24 08:54 5 MG Bupropion HCl 150 mg BID PO 10/18/24 10:00 10/19/24 08:53 150 MG Trazodone HCl 100 mg HS PO 10/17/24 22:00 10/18/24 21:40 100 MG Insulin Glargine 15 units BID SC 10/18/24 10:00 10/19/24 12:56 15 UNITS Metronidazole 100 ml @ 100 mls/hr Q8HR IV 10/18/24 14:00 10/19/24 14:15 100 MLS/HR Hydralazine HCl 10 mg Q6HP PRN IV 10/18/24 08:30 10/19/24 02:52 10 MG Diagnostic Test (Pha) 1 strip ACHS 10/19/24 11:30 10/19/24 11:30 1 STRIP Insulin Human Regular ACHS SC 10/19/24 11:30 10/19/24 12:57 2 UNITS Dextrose 50 ml UD PRN IV 10/19/24 10:45 Vancomycin HCl 250 ml @ 200 mls/hr Q24H IV 10/19/24 16:00 Examination Pt is lying on bed General Appearance: Alert,But not fully Oriented, Cooperative, Not in acute distress HEENT: Atraumatic, Mucous membranes moist/pink Respiratory: Clear to auscultation, Normal air movement, No added sounds Cardiovascular: Regular rate, Normal S1, Normal S2, No murmurs Abdominal: Active bowel sounds, Soft, no distention, no tenderness Extremities: right foot wrapped in bandage Neuro: Normal speech, sensorimotor deficits none Psych/Mental Status: Mental status NL, Mood NL Nurse was there as sharperone during examination laboratory and microbiology Laboratory Tests 10/19/24 05:14 Test 10/19/24 05:14 Range/Units Serum Glucose 55 #L 74-106 mg/dL Microbiology Date/Time Source Procedure Growth Status 10/18/24 08:41 Blood Blood Culture - Preliminary NO GROWTH AFTER 24 HOURS OF INCUBATION. Resulted Labs and/or images reviewed: Labs reviewed by me, Image(s) reviewed by me Problem List/Assessment/Plan Problem List/Assessment/Plan # Acute metabolic encephalopathy due to hypoglycemia # Sepsis can not be ruled out # RT foot osteomyelitis # Chronic diabetic foot ulcer # Uncontrolled type 1 DM with HbA1c 8.9 # severe PAD of bilateral SFA, popliteal, tibioperoneal, posterior tibial arteries - Three views right foot CT from [facility] showed findings/ to 0 five to mellitus and 5th metatarsal. - Consulted Podiatry for further evaluation - Patient currently on vancomycin, Rocephin Flagyl - Accu-Cheks and ISS - Lantus 10 units - wound consult and wound/ blood cultures - Head CT no acute abnormalities - CT angio of aorta and lower extremities. which showed Severe peripheral arterial disease involving the bilateral SFA, popliteal, tibioperoneal, posterior tibial arteries, consulted vascular surgeon. # uncontrolled hypertension/ hypertensive urgency - continuously monitor blood pressure - resume home medication amlodipine - hydralazine 10 mg IV p.r.n. if SBP more than 160 # MARIANO likely due to vasomotor unknown baseline creatinine - monitor lab for now - Please be cautious on nephrotoxic agents - kidney usg # history of CVA, dementia # severe deconditioning - delirium precautions # anxiety, depression - patient is on bupropion and trazodone No GI PPX needed Lovenox Diabetic diet if tolerates Goals of care discussed with the patient for more than 29 minutes: Full code status Case discussed with Dr. Prince, patient and RN Plan discussed with: Patient My Orders My Orders Orders - CASSIE BAUMANN RESIDENT Procedure Category Date Status Time * Surgical Consult CONS 10/18/24 Transmitted * Dietary Consult CONS 10/18/24 Transmitted 12:30 Podiatry Consult CONS 10/18/24 Transmitted 12:30 Cleanse Wound With AURA 10/18/24 In Process Wound Clean 12:30 Consult CONS 10/18/24 Transmitted Vascular/Endovascular 12:30 Potassium Effervesent PHA 10/19/24 In Process Tab (Klor-Con/Ef) 08:15 Ct Angio Abd Aorta W CT 10/19/24 Resulted Run Off 10:36 Glucose Blood PHA 10/19/24 In Process (Accu-Chek Comfort 11:30 Insulin R (Human) PHA 10/19/24 In Process (Insulin R) 11:30 Dextrose 50% Syringe PHA 10/19/24 In Process 10:45 CASSIE BAUMANN RESIDENT October 19, 2024 14:30
--- NOTE | 2024-10-19 16:05 | DVH ---
EXAM: XY R ELBOW 3 VIEW XRAY HISTORY: limited motion COMPARISON: None TECHNIQUE: Three views of the right elbow were performed. FINDINGS: No acute fracture or effusion are identified about the right elbow. No significant degenerative vega ges. The soft tissue images are very limited. The study is very limited due to motion artifact IMPRESSION: 1. Study with no fracture seen.
--- NOTE | 2024-10-19 16:35 | DVH ---
EXAM: US Duplex Right Upper Extremity Veins CLINICAL INDICATION: R/O DVT , RUE SWELLING. TECHNIQUE: Real-time duplex ultrasound scan of the right upper extremity veins integrating B-mode tw o-dimensional vascular structure, Doppler spectral analysis, color flow Doppler imaging and compressi on. COMPARISON: None FINDINGS: DEEP VEINS: Unremarkable. No DVT in the internal jugular, subclavian, axillary, or brachial veins. The veins demonstrate normal color flow, are normally compressible, with normal phasic flow and/or augmentation response. SUPERFICIAL VEINS: Thrombus in the cephalic vein of the forearm. SOFT TISSUES: No acute findings. OTHER FINDINGS: . IMPRESSION: Thrombus in the cephalic vein of the forearm.
[2024-10-19] MEDS: LACTULOSE 20Gm/30ML SOLN PO SCH (17:31)
[2024-10-19] MEDS: VANCOMYCIN 1.25GM/250ML 250 ML IV SCH (17:31)
[2024-10-19] MEDS: LORazepam 2MG/ML-1ML VIAL IV PRN (17:32)
--- NOTE | 2024-10-19 18:53 | DVH ---
US Rt Upper Ext Art Duplex Date: 10/19/2024 04:00 PM Clinical History: r/o obstruction of blood flow. hardening of the skin. Comparison: None Technique: Ultrasound right upper extremity arterial duplex Finding: RIGHT: Peak systolic velocities are as follows: Distal subclavian artery 104.4 cm/ biphasic Axillary artery: 170.3 cm/sec biphasic Dsistal brachial artery 278.2 cm/sec biphasic greater than 50% stenosis Radial artery: 56 cm/sec monophasic Distal radial artery: 22.8 cm/s Ulnar artery: 157.3 cm/sec biphasic greater than 50% stenosis at the ulnar artery. IMPRESSION: 1. There is greater than 50% stenosis in the right brachial artery and right ulnar artery. HS:Y
[2024-10-20] VITALS (8 sets, daily range): BP systolic 96–162; BP diastolic 60–73; PULSE 70–85; RESP 17–19; TEMP 97.2–97.8; O2SAT 94–97
[2024-10-20 07:16] LABS: Basophils # (auto) 0.1 10 ^3/uL (0-0.2); Basophils % (auto) 1.1 % (0.0-2.0); Eosinophils # (auto) 0.3 10 ^3/uL (0-0.8); Hematocrit 36.3 % (41.0-53.0); Hemoglobin 11.9 g/dL (13.5-17.5); Lymphocytes # (auto) 2.4 10 ^3/uL (0.4-5.4); Lymphocytes % (auto) 33.4 % (10.0-50.0); Mean Corpuscular Hgb Conc. 32.7 g/dL (32.0-36.0); Mean Corpuscular Volume 85.6 fL (80.0-100.0); Monocytes # (auto) 0.8 10 ^3/uL (0-1.3); Monocytes % (auto) 11.3 % (0.0-12.0); Neutrophils # (auto) 3.7 10 ^3/uL (1.6-8.6); Neutrophils % (auto) 50.2 % (37.0-80.0); Nucleated Red Blood Cells % 0.1 %; Platelet Count (auto) 382 10^3/uL (140-450); Red Blood Cells 4.24 10^6/uL (4.5-5.90); Red Cell Distribution Width 15.9 % (11.8-14.3); White Blood Cell 7.3 10^3/uL (4.4-10.8)
[2024-10-20 07:37] LABS: Alanine Aminotransferase 13 U/L (7-40); Alkaline Phosphatase 98 U/L (46-116); Anion Gap 12 (5-15); BUN/Creatinine Ratio 17.8 (10.0-20.0); Calcium 9.8 mg/dL (8.7-10.4); Carbon Dioxide 23 mmol/L (20-31); Potassium 3.6 mmol/L (3.5-5.1); Sodium 143 mmol/L (136-145)
[2024-10-20 07:38] LABS: Total Protein 7.5 g/dL (5.7-8.2)
[2024-10-20 07:39] LABS: Aspartate Aminotransferase 24 U/L (13-40)
[2024-10-20 07:44] LABS: Bilirubin, Total 0.3 mg/dL (0.2-1.0); Blood Urea Nitrogen 26 mg/dL (9-23); Chloride 108 mmol/L (98-107)
[2024-10-20 07:46] LABS: Glucose 37 mg/dL (74-106)
--- NOTE | 2024-10-20 16:08 | DVHPNRES ---
Progress Note Date Seen: October 20, 2024 Resident Creating Document: NUBIA JAMISON RESIDENT Medical Necessity Reason Pt with a Central, PICC or Fol: No Medical Necessity Reason Review of Systems Patient seen and examined at the bedside. Patient reported mild improvement in his pain but reported no new complaints. Lower extremity duplex showed severe PID, Podiatry hr business partner consultant evaluated the patient and advised to do CT angiogram of aorta and lower extremities. which showed Severe peripheral arterial disease involving the bilateral SFA, popliteal, tibioperoneal, posterior tibial arteries, consulted vascular surgeon. Patient reports: No new complaints. He was eating breakfast at my time to visit and assessment. He showed me a honey crusting blister on his right upper that developed since yesterday. He said he it was painful yesterday but a little better today. He is currently on Vancomycin, metronidazole and ceftriaxone. Will add clindamycin Subjective Review of Systems Constitutional: Denies fever no chills no feeling of malaise HEENT: Denies headache, ear pain, ear discharges, conjunctivitis, nasal discharge throat pain Cardiovascular: Denies chest pain, palpitation, orthopnea, PND, or pedal edema Respiratory: Denies shortness of breath, cough cough, sputum production, hemoptysis, GI: Denies abdominal pain, nausea, vomiting, diarrhea, hematemesis, hematochezia, : Denies frequency, urgency, hematuria, Endocrine: Denies unintentional weight gain or weight loss, feeling of hot flashes, Khoi: Denies easy bruising, bleeding disorders, epistaxis Musculoskeletal: right leg wrapped bandage Psych: No evidence of depression, sherri, suicidal ideation Objective vital signs Vital Sign Date Time Temp Pulse Resp B/P (MAP) Pulse Ox O2 Delivery O2 Flow Rate FiO2 10/20/24 09:03 162/63 10/20/24 09:00 97.4 76 17 95 97.4 10/20/24 08:00 Room Air* 0 21 Total Intake and Output 10/19/24 10/19/24 10/20/24 15:00 23:00 07:00 Intake Total 150 ml 950 ml 1040 ml Output Total 1200 ml 475 ml Balance 150 ml -250 ml 565 ml medications Current Medications Medications Dose Ordered Sig/Benoit Route Start Time Stop Time Status Last Admin Dose Admin Acetaminophen 650 mg Q6HP PRN PO 10/17/24 21:45 Acetaminophen/ Hydrocodone Bitart 1 tab Q4HP PRN PO 10/17/24 21:45 10/19/24 12:54 1 TAB Enoxaparin Sodium 40 mg DAILY SC 10/18/24 10:00 10/20/24 09:04 40 MG Ceftriaxone Sodium 50 ml @ 100 mls/hr DAILY@09 IV 10/18/24 09:00 10/20/24 09:03 100 MLS/HR Vancomycin HCl 0 ml @ 0 mls/hr UD IV 10/17/24 21:45 Amlodipine Besylate 5 mg DAILY PO 10/18/24 10:00 10/20/24 09:03 5 MG Bupropion HCl 150 mg BID PO 10/18/24 10:00 10/20/24 09:02 150 MG Trazodone HCl 100 mg HS PO 10/17/24 22:00 10/19/24 22:24 100 MG Insulin Glargine 15 units BID SC 10/18/24 10:00 10/20/24 10:08 15 UNITS Metronidazole 100 ml @ 100 mls/hr Q8HR IV 10/18/24 14:00 10/20/24 13:36 100 MLS/HR Hydralazine HCl 10 mg Q6HP PRN IV 10/18/24 08:30 10/19/24 17:32 10 MG Diagnostic Test (Pha) 1 strip ACHS 10/19/24 11:30 10/20/24 11:55 1 STRIP Insulin Human Regular ACHS SC 10/19/24 11:30 10/20/24 12:01 4 UNITS Dextrose 50 ml UD PRN IV 10/19/24 10:45 Vancomycin HCl 250 ml @ 200 mls/hr Q24H IV 10/19/24 16:00 10/19/24 17:31 200 MLS/HR Lactulose 30 ml DAILY PO 10/19/24 14:30 10/20/24 10:06 30 ML Lorazepam 1 mg Q6HP PRN IV 10/19/24 15:15 10/20/24 11:55 1 MG Examination Pt is sitting bed, eating breakfast General Appearance: Alert,But not fully Oriented, Cooperative, Not in acute distress HEENT: Atraumatic, Mucous membranes moist/pink Respiratory: Clear to auscultation, Normal air movement, No added sounds Cardiovascular: Regular rate, Normal S1, Normal S2, No murmurs Abdominal: Active bowel sounds, Soft, no distention, no tenderness Extremities: right foot wrapped in bandage, Right arm with honey crusted lesion with blister Neuro: Normal speech, sensorimotor deficits none Psych/Mental Status: Mental status NL, Mood NL Nurse was there as raquelne during examination laboratory and microbiology Laboratory Tests 10/20/24 06:12 Test 10/20/24 06:12 Range/Units Serum Glucose 37 *L 74-106 mg/dL Microbiology Date/Time Source Procedure Growth Status 10/18/24 08:41 Blood Blood Culture - Preliminary NO GROWTH AFTER 48 HOURS OF INCUBATION. Resulted Problem List/Assessment/Plan Problem List/Assessment/Plan Problem List/Assessment/Plan # Acute metabolic encephalopathy due to hypoglycemia # Sepsis can not be ruled out # RT foot osteomyelitis # Chronic diabetic foot ulcer # Uncontrolled type 1 DM with HbA1c 8.9 # severe PAD of bilateral SFA, popliteal, tibioperoneal, posterior tibial arteries - Three views right foot CT from [facility] showed findings/ to 0 five to mellitus and 5th metatarsal. - Consulted Podiatry for further evaluation - Patient currently on vancomycin, Rocephin Flagyl - Accu-Cheks and ISS - Lantus 10 units - wound consult and wound/ blood cultures - Head CT no acute abnormalities - CT angio of aorta and lower extremities. which showed Severe peripheral arterial disease involving the bilateral SFA, popliteal, tibioperoneal, posterior tibial arteries, consulted vascular surgeon. # uncontrolled hypertension/ hypertensive urgency - continuously monitor blood pressure - resume home medication amlodipine - hydralazine 10 mg IV p.r.n. if SBP more than 160 # MARIANO likely due to vasomotor unknown baseline creatinine - monitor lab for now - Please be cautious on nephrotoxic agents - kidney usg # history of CVA, dementia # severe deconditioning - delirium precautions # anxiety, depression - patient is on bupropion and trazodone Thrombus in the cephalic vein of the forearm. No GI PPX needed Lovenox Diabetic diet if tolerates Goals of care discussed with the patient for more than 16 minutes: Full code status Case discussed with Dr. Prince, patient and RN Plan discussed with: Patient YAQUELINNUBIA RESIDENT October 20, 2024 16:08
[2024-10-20] MEDS: CLINDAMYCIN 300MG IV 50 ML IV ONE (16:56)
[2024-10-20] MEDS: ENOXAPARIN SOD 80 MG/0.8ML SYRINGE SC SCH (21:36)
[2024-10-21] MEDS: CLINDAMYCIN 300MG IV 50 ML IV SCH
[2024-10-21 01:00] VITALS: BP 153/60; PULSE 78; RESP 18; TEMP 97.2; O2SAT 95
[2024-10-21 05:00] VITALS: BP_SYST 143; BP_SYST 147; BP_DIAS 57; BP_DIAS 90; PULSE 66; PULSE 69; RESP 17; RESP 18; TEMP 96.5; TEMP 97.5; O2SAT 95; O2SAT 98
[2024-10-21 06:22] LABS: Basophils # (auto) 0.1 10 ^3/uL (0-0.2); Basophils % (auto) 1.2 % (0.0-2.0); Eosinophils # (auto) 0.5 10 ^3/uL (0-0.8); Eosinophils % (auto) 5.7 % (0.0-7.0); Hematocrit 31.2 % (41.0-53.0); Hemoglobin 10.1 g/dL (13.5-17.5); Lymphocytes # (auto) 2.7 10 ^3/uL (0.4-5.4); Lymphocytes % (auto) 34.5 % (10.0-50.0); Mean Corpuscular Hemoglobin 27.6 pg (28.0-32.0); Mean Corpuscular Hgb Conc. 32.5 g/dL (32.0-36.0); Monocytes # (auto) 0.8 10 ^3/uL (0-1.3); Monocytes % (auto) 10.7 % (0.0-12.0); Neutrophils # (auto) 3.8 10 ^3/uL (1.6-8.6); Neutrophils % (auto) 47.9 % (37.0-80.0); Platelet Count (auto) 307 10^3/uL (140-450); Red Blood Cells 3.67 10^6/uL (4.5-5.90); Red Cell Distribution Width 15.5 % (11.8-14.3); White Blood Cell 7.9 10^3/uL (4.4-10.8)
[2024-10-21 06:42] LABS: Chloride 106 mmol/L (98-107); Sodium 138 mmol/L (136-145)
[2024-10-21 06:43] LABS: Anion Gap 10 (5-15); Carbon Dioxide 22 mmol/L (20-31)
[2024-10-21 06:48] LABS: BUN/Creatinine Ratio 17.7 (10.0-20.0)
[2024-10-21 07:30] LABS: Blood Urea Nitrogen 38 mg/dL (9-23); Calcium 8.7 mg/dL (8.7-10.4)
[2024-10-21 07:32] LABS: Glucose 48 mg/dL (74-106)
[2024-10-21 08:00] VITALS: PULSE 70; PULSE 73; RESP 20; O2SAT 96
[2024-10-21 09:00] VITALS: BP 184/78; PULSE 75; RESP 16; TEMP 97.8; O2SAT 98
--- NOTE | 2024-10-21 11:26 | DVHPNRES ---
Progress Note Date Seen: October 21, 2024 Resident Creating Document: CASSIE BAUMANN RESIDENT Medical Necessity Reason Pt with a Central, PICC or Fol: No Subjective Review of Systems Patient seen and examined at the bedside. Patient reported mild improvement in his pain but reported no new complaints. patient is getting hypoglycemia, continuously monitor blood glucose. Pending vascular surgeon consultation. Patient reports: Feels better Objective vital signs Vital Sign Date Time Temp Pulse Resp B/P (MAP) Pulse Ox O2 Delivery O2 Flow Rate FiO2 10/21/24 09:00 97.8 75 16 184/78 (113) 98 97.8 10/20/24 20:00 Room Air* 0 21 Total Intake and Output 10/20/24 10/20/24 10/21/24 15:00 23:00 07:00 Intake Total 483 ml 1450 ml 1140 ml Output Total 750 ml 400 ml Balance 483 ml 700 ml 740 ml medications Current Medications Medications Dose Ordered Sig/Benoit Route Start Time Stop Time Status Last Admin Dose Admin Acetaminophen 650 mg Q6HP PRN PO 10/17/24 21:45 Acetaminophen/ Hydrocodone Bitart 1 tab Q4HP PRN PO 10/17/24 21:45 10/20/24 20:29 1 TAB Ceftriaxone Sodium 50 ml @ 100 mls/hr DAILY@09 IV 10/18/24 09:00 10/21/24 09:58 100 MLS/HR Vancomycin HCl 0 ml @ 0 mls/hr UD IV 10/17/24 21:45 Amlodipine Besylate 5 mg DAILY PO 10/18/24 10:00 10/21/24 08:25 5 MG Bupropion HCl 150 mg BID PO 10/18/24 10:00 10/21/24 08:25 150 MG Trazodone HCl 100 mg HS PO 10/17/24 22:00 10/20/24 21:33 100 MG Insulin Glargine 15 units BID SC 10/18/24 10:00 10/20/24 21:45 15 UNITS Metronidazole 100 ml @ 100 mls/hr Q8HR IV 10/18/24 14:00 10/21/24 05:58 100 MLS/HR Hydralazine HCl 10 mg Q6HP PRN IV 10/18/24 08:30 10/19/24 17:32 10 MG Diagnostic Test (Pha) 1 strip ACHS 10/19/24 11:30 10/21/24 07:12 1 STRIP Insulin Human Regular ACHS SC 10/19/24 11:30 10/20/24 21:45 2 UNITS Dextrose 50 ml UD PRN IV 10/19/24 10:45 Vancomycin HCl 250 ml @ 200 mls/hr Q24H IV 10/19/24 16:00 10/20/24 16:10 200 MLS/HR Lactulose 30 ml DAILY PO 10/19/24 14:30 10/21/24 08:27 30 ML Lorazepam 1 mg Q6HP PRN IV 10/19/24 15:15 10/21/24 08:16 1 MG Clindamycin Phosphate 50 ml @ 50 mls/hr Q8H IV 10/21/24 00:00 10/21/24 08:15 50 MLS/HR Enoxaparin Sodium 70 mg Q12HR SC 10/20/24 22:00 10/21/24 08:22 70 MG Examination Pt is lying on bed General Appearance: Alert,But not fully Oriented, Cooperative, Not in acute distress HEENT: Atraumatic, Mucous membranes moist/pink Respiratory: Clear to auscultation, Normal air movement, No added sounds Cardiovascular: Regular rate, Normal S1, Normal S2, No murmurs Abdominal: Active bowel sounds, Soft, no distention, no tenderness Extremities: right foot wrapped in bandage, Right upper extremity warm, hard Neuro: Normal speech, sensorimotor deficits none Psych/Mental Status: Mental status NL, Mood NL Nurse was there as sharperone during examination laboratory and microbiology Laboratory Tests 10/21/24 05:39 Test 10/21/24 05:39 Range/Units Serum Glucose 48 *L 74-106 mg/dL Microbiology Date/Time Source Procedure Growth Status 10/18/24 08:41 Blood Blood Culture - Preliminary NO GROWTH AFTER 72 HOURS OF INCUBATION. Resulted Labs and/or images reviewed: Labs reviewed by me, Image(s) reviewed by me Problem List/Assessment/Plan Problem List/Assessment/Plan # Acute metabolic encephalopathy due to hypoglycemia # Sepsis can not be ruled out # RT foot osteomyelitis # Chronic diabetic foot ulcer # Uncontrolled type 1 DM with HbA1c 8.9 # severe PAD of bilateral SFA, popliteal, tibioperoneal, posterior tibial arteries - Three views right foot CT from [facility] showed findings/ to 0 five to mellitus and 5th metatarsal. - Consulted Podiatry for further evaluation - Patient currently on vancomycin, Rocephin Flagyl - Accu-Cheks and ISS - Lantus 10 units - wound consult and wound/ blood cultures - Head CT no acute abnormalities - CT angio of aorta and lower extremities. which showed Severe peripheral arterial disease involving the bilateral SFA, popliteal, tibioperoneal, posterior tibial arteries, consulted vascular surgeon. # Right Upper Extremity DVT - evident on doppler # Uncontrolled hypertension/ hypertensive urgency - continuously monitor blood pressure - resume home medication amlodipine - hydralazine 10 mg IV p.r.n. if SBP more than 160 # MARIANO likely due to vasomotor unknown baseline creatinine - monitor lab for now - Please be cautious on nephrotoxic agents - kidney usg # History of CVA, dementia # Severe deconditioning - delirium precautions # Anxiety, depression - patient is on bupropion and trazodone No GI PPX needed Lovenox Diabetic diet if tolerates Goals of care discussed with the patient for more than 29 minutes: Full code status Case discussed with Dr. Prince, patient and RN Plan discussed with: Patient CASSIE BAUMANN RESIDENT October 21, 2024 11:26
[2024-10-21] MEDS: LACTATED RINGER'S 1,000 ML IV SCH (12:51)
[2024-10-21 13:00] VITALS: BP 179/73; PULSE 73; RESP 20; TEMP 97.6; O2SAT 96
[2024-10-21 17:00] VITALS: BP 153/57; PULSE 80; RESP 20; TEMP 98.1; O2SAT 97
--- NOTE | 2024-10-21 18:29 | DVHINCON2 ---
Date of service: October 20, 2024 Family History: Diabetes mellitus G8 MOTHER G8 FATHER Allergies: Coded Allergies: NO KNOWN ALLERGIES (Unverified , 10/17/24) Home Meds Reported Medications Rosuvastatin Calcium (Crestor) 20 Mg Tab, 1 TAB PO QHSP, #30 TAB 5 Refills 10/18/24 Insulin Glargine (Lantus Solostar) 100 Unit/Ml Inj, 12 UNIT SC BID, INJ 10/18/24 Insulin Lispro (Human) (Humalog) 100 Unit/Ml Inj, 100 UNIT SC TID, INJ 10/18/24 Pantoprazole Sodium (PANTOPRAZOLE SODIUM) 40 Mg Inj, 40 MG IV, INJ 10/18/24 Lisinopril (Lisinopril) 2.5 Mg Tab, 2.5 MG PO, TAB 10/18/24 Levothyroxine Sodium (Levothyroxine Sodium) 50 Mcg Tab, 50 MCG PO QAM for 30 Days, MCG 10/18/24 Hydroxyzine HCl (Hydroxyzine Hydrochloride) 50 Mg Tab, 50 MG PO TID, TAB 10/18/24 Hydralazine HCl (Hydralazine HCl) 25 Mg Tab, 25 MG PO QID, TAB 10/18/24 Gabapentin (Gabapentin) 100 Mg Cap, 100 MG PO BID for 30 Days, MG 10/18/24 Carvedilol (COREG) 12.5 Mg Tab, 25 MG PO BID, TAB 10/18/24 Bupropion Hcl (WELLBUTRIN TABLET) 100 Mg Tb, 150 MG PO BID, TAB 10/18/24 Benazepril Hcl (Benazepril Hcl) 5 Mg Tab, 5 MG PO DAILY for 30 Days, MG 10/18/24 Baclofen (Baclofen) 10 Mg Tab, 10 MG PO Q8HP for 30 Days, MG 10/18/24 Aspirin (Aspir-Low) 81 Mg Tab, 81 MG PO DAILY for 30 Days, MG 10/18/24 Amlodipine Besylate (Amlodipine Besylate) 5 Mg Tab, 5 MG PO BID for 30 Days, MG 10/18/24 Current Medications Current Medications Medications (Trade) Dose Ordered Sig/Benoit Route PRN Reason Start Time Stop Time Status Last Admin Clindamycin Phosphate 50 ml @ 50 mls/hr Q8H IV 10/21/24 00:00 10/21/24 11:51 DC 10/21/24 08:15 Enoxaparin Sodium (Lovenox) 70 mg Q12HR SC 10/20/24 22:00 10/21/24 18:19 DC 10/21/24 08:22 Insulin Glargine (Lantus) 15 units DAILY SC 10/22/24 10:00 10/21/24 18:19 DC Lactated Ringer's 1,000 ml @ 125 mls/hr Q8H IV 10/21/24 12:00 10/21/24 18:19 DC 10/21/24 12:51 Vital Signs Vital Signs Date Time Temp Pulse Resp B/P (MAP) Pulse Ox O2 Delivery O2 Flow Rate FiO2 10/21/24 17:00 98.1 80 20 153/57 (89) 97 98.1 10/21/24 08:00 Room Air* 0 21 Labs/Diagnostic Data Labs Test 10/21/24 12:07 10/21/24 05:39 10/20/24 06:12 10/19/24 05:14 Range/Units POC Glucose 260 H 70-106 mg/dl White Blood Count 7.9 4.4-10.8 10^3/uL Red Blood Count 3.67 L 4.5-5.90 10^6/uL Hemoglobin 10.1 #L 13.5-17.5 g/dL Hematocrit 31.2 #L 41.0-53.0 % Mean Corpuscular Volume 85.0 80.0-100.0 fL Mean Corpuscular Hemoglobin 27.6 L 28.0-32.0 pg Mean Corpuscular Hemoglobin Concent 32.5 32.0-36.0 g/dL Red Cell Distribution Width 15.5 H 11.8-14.3 % Platelet Count 307 140-450 10^3/uL Mean Platelet Volume 7.0 6.9-10.8 fL Neutrophils (%) (Auto) 47.9 37.0-80.0 % Lymphocytes (%) (Auto) 34.5 10.0-50.0 % Monocytes (%) (Auto) 10.7 0.0-12.0 % Eosinophils (%) (Auto) 5.7 0.0-7.0 % Basophils (%) (Auto) 1.2 0.0-2.0 % Neutrophils # (Auto) 3.8 1.6-8.6 10 ^3/uL Lymphocytes # (Auto) 2.7 0.4-5.4 10 ^3/uL Monocytes # (Auto) 0.8 0-1.3 10 ^3/uL Eosinophils # (Auto) 0.5 0-0.8 10 ^3/uL Basophils # (Auto) 0.1 0-0.2 10 ^3/uL Nucleated Red Blood Cells 0.0 % Sodium Level 138 # 136-145 mmol/L Potassium Level 4.0 3.5-5.1 mmol/L Chloride Level 106 98-107 mmol/L Carbon Dioxide Level 22 20-31 mmol/L Anion Gap 10 5-15 Blood Urea Nitrogen 38 #H 9-23 mg/dL Creatinine 2.15 H 0.700-1.30 mg/dL Glomerular Filtration Rate Calc 34 >90 mL/min BUN/Creatinine Ratio 17.7 10.0-20.0 Serum Glucose 48 *L 74-106 mg/dL Calcium Level 8.7 8.7-10.4 mg/dL Magnesium Level 2.0 1.6-2.6 mg/dL Total Bilirubin 0.3 0.2-1.0 mg/dL Aspartate Amino Transferase (AST) 24 13-40 U/L Alanine Aminotransferase (ALT) 13 7-40 U/L Alkaline Phosphatase 98 46-116 U/L Total Protein 7.5 5.7-8.2 g/dL Albumin 4.0 3.2-4.8 g/dL Random Vancomycin Level 8.3 5-10 ug/mL Test 10/18/24 12:17 10/18/24 05:45 10/17/24 19:53 Range/Units HIV (1&2) Antibody Negative Negative Prothrombin Time 11.4 9.3-11.8 sec Prothrombin Time INR 1.08 0.9-1.15 Activated Partial Thromboplast Time 29.3 24.5-34.5 SEC Hemoglobin A1c 8.9 H <5.7 % A1C Thyroid Stimulating Hormone (TSH) 0.42 L 0.55-4.78 uIU/mL Free Thyroxine (T4) Calculated 1.23 0.89-1.76 ng/dL Total Triiodothyronine (TT3) 0.85 0.60-1.81 ng/mL Lactic Acid Level 1.0 0.4-2.0 mmol/L Plasma/Serum Blood Alcohol < 3.0 <10 mg/dL Microbiology Date/Time Source Procedure Growth Status 10/18/24 08:41 Blood Blood Culture - Preliminary NO GROWTH AFTER 72 HOURS OF INCUBATION. Resulted Problems(with codes): (1) Cellulitis (2) Osteomyelitis (3) Altered mental status (4) Severe sepsis (5) MARIANO (acute kidney injury) (6) PAD (peripheral artery disease) Plan/Recommendation ASSESSMENT AND PLAN ID Problem List: - Altered mental status - Hypoglycemia - Hypertensive urgency - Acute kidney injury (MARIANO) on chronic kidney disease (CKD) - Uncontrolled diabetes mellitus - Right foot osteomyelitis - Right foot cellulitis - Right elbow cellulitis - Right foot partial amputation (history) - Right arm deep vein thrombosis (DVT) - Right lower extremity DVT - Severe peripheral arterial disease (PAD) - Thrombus in right cephalic vein - Right brachial and ulnar artery stenosis - Chronic congestive renal disease Assessment: This is a 59-year-old male with a past medical history of dementia, stroke, diabetes mellitus, partial right foot amputation, and chronic kidney disease, who presents with acute altered mental status and was found unresponsive at home with initial hypoglycemia. Blood sugar on arrival was 52 mg/dL. In the ED, the patient was noted to be drowsy but arousable and able to answer some questions. There is concern for right foot osteomyelitis with active drainage and worsening erythema, on a background of prior partial foot amputation. Notable exam findings include decreased bilateral pedal sensation, plantar surface ulcer with localized erythema and drainage, and a honey-crusted blister on the right arm. Labs significant for elevated BUN/creatinine, hyperglycemia, and anemia. Imaging reveals severe bilateral lower extremity peripheral arterial disease, occlusions and high-grade stenosis in multiple vessels, and a right arm DVT. The patient has also developed right elbow cellulitis. Patient was started on vancomycin, ceftriaxone, and metronidazole (Flagyl). Bl ood cultures remain negative and vascular surgery consultation is pending. Plan: - Continue IV vancomycin, ceftriaxone, and metronidazole for osteomyelitis, cellulitis, and coverage of mixed infections. - Obtain wound cultures from draining right plantar ulcer. - MRI right foot to assess for extent of osteomyelitis. - Consult vascular surgery for evaluation for possible revascularization vs amputation if wound deemed unrecoverable. - Debridement of plantar ulcer as indicated after vascular evaluation. - Hemodynamic monitoring for hypertensive urgency; manage BP with appropriate agents. - Blood glucose goal 50% stenosis right brachial and ulnar arteries; right elbow with honeycombing, no fracture. Mary Lou Luciano M.D. History: The patient's chart, labs, and medications were reviewed in detail. The patient was seen and examined.History obtained from: chart and direct patient exam. Mr. Fleming is a 59-year-old male with documented histories of dementia, stroke, diabetes, right partial foot amputation, and CKD. He was found unresponsive at home with a blood glucose of 52 mg/dL and transferred for evaluation. In the ED, he was drowsy but arousable and able to answer some questions. Right foot wound with plantar ulcer, worsening localized erythema and drainage, and history of amputation. Decreased sensation noted bilaterally in the feet. Right arm with honey-crusted blister and evidence of cellulitis and cephalic vein thrombosis. Elbow with mild cellulitis. Imaging and labs as summarized above. Review of Systems:A complete 10-system review of systems was completed and negative except as noted in the HPI or here. ROS: - CONSTITUTIONAL: Denies fever and chills. - HEENT: Not discussed. - RESPIRATORY: Denies shortness of breath, no cough reported. - CARDIOVASCULAR: Denies chest pain, no palpitations discussed. - GASTROINTESTINAL: Not discussed. - GENITOURINARY: Not discussed. - MUSCULOSKELETAL: Denies myalgia or joint pain. Reports decreased sensation in bilateral feet. - SKIN: Reports right plantar ulcer with drainage/erythema, honey-crusted right arm blister. - NEUROLOGICAL: Presents with altered mental status, history of stroke and dementia. No acute focal deficits reported. - PSYCHIATRIC: Not discussed. Past Medical History: - Dementia - Stroke - Diabetes mellitus (uncontrolled, A1c 8.9) - Chronic kidney disease - Right partial foot amputation - Peripheral arterial disease Past Surgical History: Right partial foot amputation. Further details not provided. Home Medications: Not provided in transcript. Allergies: Not provided in transcript. Family History: Not provided in transcript. Social History: Not provided in transcript. Objective: Vital Signs on Arrival: Temp: 97.7 F Pulse: 73 bpm Resp: 17 BP: 148/78 mmHg SpO2: 99% on 2L nasal cannula Most Recent Vital Signs: Temp: 97.6 F Pulse: 79 bpm BP: 180/58 mmHg SpO2: 76% on room air Admission Weight: Not provided in transcript. Physical Exam: General: NAD Neck: Supple. No masses. HEENT: PERRL. Normal lids and conjunctiva. Moist mucous membranes. Oropharynx without lesions, exudates or excessive erythema. Normal appearance of the external aspects of the nose and ears. Heart: Regular rhythm, normal rate. No murmur. No lower extremity edema. Lungs: Normal respiratory effort. Clear to auscultation bilaterally. No wheezes. No crackles. Abdomen: Soft. Non-tender. Non-distended. No masses or abdominal hernia. Msk: No digital cyanosis. Normal strength and tone in all 4 limbs. Decreased sensation in bilateral feet; right foot partially amputated. Skin: Warm and dry. Right plantar surface ulcer with erythema, drainage; honey- crusted blister and mild cellulitis on right arm and elbow. Neuro: Alert but drowsy; slow to answer questions. Oriented x3 per transcript. No facial droop or slurred speech. Extra-ocular movements intact. Sensation: Decreased to soft touch in bilateral feet. Psych: Appropriate mood. Full affect. Oriented to person, place, and time per transcript. Lines: Not provided in transcript. Diagnostic Studies: Blood cultures: No growth to date Admission labs: Hemoglobin: 11 g/dL Platelet count: 321 x10^3/?L Sodium: 138 mmol/L BUN: 38 mg/dL Creatinine: 2.15 mg/dL Glucose: 48 mg/dL on admission Hemoglobin A1c: 8.9% Pertinent Imaging: Chest X-ray: No acute cardiopulmonary process. Doppler lower extremity arteries: Moderate to advanced arterial disease, pronounced in bilateral infrapopliteal/tibial arteries, occlusion of bilateral tibial arteries, high-grade stenosis bilateral anterior/tibial arteries, moderate-grade stenosis right proximal SFA. CT head: No acute intracranial abnormality. Aorta runoff: Severe peripheral arterial disease involving bilateral SFA, popliteal, posterior tibial arteries; occlusions and multifocal moderate/high- grade stenosis of bilateral SFA and popliteal arteries; large volume stool in colon. Renal ultrasound: Chronic congestive renal disease, no hydronephrosis. Right arm/forearm: Cephalic vein thrombus; >50% stenosis right brachial and ulnar arteries; right elbow with honeycombing, no fracture. Plan discussed with: Patient MARY LOU LUCIANO MD October 21, 2024 18:29
[2024-10-22] MEDS ORDERED: INSULIN LANTUS (GLARGINE) 1 /0.01ml (100units/ml) SC SCH (10:00)
--- NOTE | 2024-10-22 15:54 | DVHDSRES ---
Discharge Summary Date of Admission Resident Creating Document: CASSIE BAUMANN RESIDENT October 17, 2024 at 21:32 Date of Discharge: October 21, 2024 Admitting Diagnosis Altered mental status Labs/Diagnostic Data: Laboratory Results Test 10/21/24 12:07 10/21/24 05:39 10/20/24 06:12 10/19/24 05:14 POC Glucose 260 mg/dl (70-106) White Blood Count 7.9 10^3/uL (4.4-10.8) Red Blood Count 3.67 10^6/uL (4.5-5.90) Hemoglobin 10.1 g/dL (13.5-17.5) Hematocrit 31.2 % (41.0-53.0) Mean Corpuscular Volume 85.0 fL (80.0-100.0) Mean Corpuscular Hemoglobin 27.6 pg (28.0-32.0) Mean Corpuscular Hemoglobin Concent 32.5 g/dL (32.0-36.0) Red Cell Distribution Width 15.5 % (11.8-14.3) Platelet Count 307 10^3/uL (140-450) Mean Platelet Volume 7.0 fL (6.9-10.8) Neutrophils (%) (Auto) 47.9 % (37.0-80.0) Lymphocytes (%) (Auto) 34.5 % (10.0-50.0) Monocytes (%) (Auto) 10.7 % (0.0-12.0) Eosinophils (%) (Auto) 5.7 % (0.0-7.0) Basophils (%) (Auto) 1.2 % (0.0-2.0) Neutrophils # (Auto) 3.8 10 ^3/uL (1.6-8.6) Lymphocytes # (Auto) 2.7 10 ^3/uL (0.4-5.4) Monocytes # (Auto) 0.8 10 ^3/uL (0-1.3) Eosinophils # (Auto) 0.5 10 ^3/uL (0-0.8) Basophils # (Auto) 0.1 10 ^3/uL (0-0.2) Nucleated Red Blood Cells 0.0 % Sodium Level 138 mmol/L (136-145) Potassium Level 4.0 mmol/L (3.5-5.1) Chloride Level 106 mmol/L (98-107) Carbon Dioxide Level 22 mmol/L (20-31) Anion Gap 10 (5-15) Blood Urea Nitrogen 38 mg/dL (9-23) Creatinine 2.15 mg/dL (0.700-1.30) Glomerular Filtration Rate Calc 34 mL/min (>90) BUN/Creatinine Ratio 17.7 (10.0-20.0) Serum Glucose 48 mg/dL (74-106) Calcium Level 8.7 mg/dL (8.7-10.4) Magnesium Level 2.0 mg/dL (1.6-2.6) Total Bilirubin 0.3 mg/dL (0.2-1.0) Aspartate Amino Transferase (AST) 24 U/L (13-40) Alanine Aminotransferase (ALT) 13 U/L (7-40) Alkaline Phosphatase 98 U/L (46-116) Total Protein 7.5 g/dL (5.7-8.2) Albumin 4.0 g/dL (3.2-4.8) Random Vancomycin Level 8.3 ug/mL (5-10) Test 10/18/24 12:17 10/18/24 05:45 10/17/24 19:53 HIV (1&2) Antibody Negative (Negative) Prothrombin Time 11.4 sec (9.3-11.8) Prothrombin Time INR 1.08 (0.9-1.15) Activated Partial Thromboplast Time 29.3 SEC (24.5-34.5) Hemoglobin A1c 8.9 % A1C (<5.7) Thyroid Stimulating Hormone (TSH) 0.42 uIU/mL (0.55-4.78) Free Thyroxine (T4) Calculated 1.23 ng/dL (0.89-1.76) Total Triiodothyronine (TT3) 0.85 ng/mL (0.60-1.81) Lactic Acid Level 1.0 mmol/L (0.4-2.0) Plasma/Serum Blood Alcohol < 3.0 mg/dL (<10) Other Laboratory Tests 10/21/24 05:39 Brief Hx & Hospital Course: Dayanara Fleming a six 18-year-old with a PMH of dementia, CVA, type 1 DM presented to the ED with a chief complaints of AMS. According to EMS, the patient was found unresponsive at home by a family member, who called 911. On EMS arrival, his blood glucose was noted to be 52. He was transferred from [facility], where the initial concern was for ALOC and right foot osteomyelitis. The patient has a history of right foot partial amputation. He denies chest pain, shortness of breath, abdominal pain, nausea, vomiting, and diarrhea. No additional modifying factors identified. The patient was diagnosed with acute metabolic encephalopathy due to hypoglycemia, possible sepsis, right foot osteomyelitis, chronic diabetic foot ulcer, uncontrolled type 1 diabetes mellitus (HbA1c 8.9), and severe peripheral arterial disease (PAD) affecting multiple arteries. Imaging from [facility] revealed osteomyelitis in the right foot. The patient was treated with vancomycin, Rocephin, and Flagyl, and managed with Accu-Cheks, ISS, and Lantus. Consultations included podiatry for foot evaluation and vascular surgery for severe PAD. Head CT showed no acute abnormalities, while CT angiography confirmed severe PAD and all other imaging findings given below. The patient also had a right upper extremity deep vein thrombosis (DVT) and uncontrolled hypertension, managed with amlodipine and hydralazine. Acute kidney injury (MARIANO) was monitored with caution on nephrotoxic agents. The patient had a history of cerebrovascular accident (CVA), dementia, severe deconditioning, anxiety, and depression, and was on bupropion and trazodone. ID consult on board. Patient is still noted to be evaluated by vascular surgeon and care has been still ongoing but patient wants to leave hospital. Despite explaining risks versus benefits of leaving AMA patient and power of disability attorney decided to leave against medical advice (AMA) and discharged with all belongings after education on AMA by the doctor and RN. Unable to do physical examination as patient left AMA Operations or Procedures EXAM: US Duplex Right Upper Extremity Veins Thrombus in the cephalic vein of the forearm. US Rt Upper Ext Art Duplex There is greater than 50% stenosis in the right brachial artery and right ulnar artery. Technique: CT axial images of the pelvis and lower are obtained without contrast. Coronal and sagittal reformats were obtained. 1. Severe peripheral arterial disease involving the bilateral SFA, popliteal, tibioperoneal, posterior tibial arteries as described. This includes occlusion of the bilateral posterior tibial arteries. Multifocal moderate high-grade stenoses of the bilateral SFA and popliteal arteries. Single-vessel runoff to the bilateral feet through the anterior tibial arteries 2. Large volume stool within the colon, especially in the rectum. TECHNIQUE: Multiple real-time sonographic images of the kidneys and bladder were obtained. Echogenic bilateral kidneys suggestive of chronic medical renal disease. No hydronephrosis. CT HEAD WITHOUT CONTRAST No acute intracranial abnormality. Bilateral Lower Extremity Arterial Duplex 1. Findings of moderate to advanced peripheral arterial disease most pronounced within bilateral infrapopliteal/tibial vasculature. Occlusion of the bilateral posterior tibial arteries. High-grade stenoses of the bilateral anterior tibial / dorsalis pedis arteries. 2. Moderate grade stenosis of the proximal right SFA Condition at Discharge: Undetermined Final Diagnosis/Problems List # Acute metabolic encephalopathy due to hypoglycemia # Sepsis can not be ruled out # RT foot osteomyelitis # Chronic diabetic foot ulcer # Uncontrolled type 1 DM with HbA1c 8.9 # severe PAD of bilateral SFA, popliteal, tibioperoneal, posterior tibial arteries # Right Upper Extremity DVT # Uncontrolled hypertension/ hypertensive urgency # MARIANO likely due to vasomotor unknown baseline creatinine # History of CVA, dementia # Severe deconditioning # Anxiety, depression Discharge Disposition: AMA Discharge Statement: "Patient was advised to return to the ER or call 911 if any headaches, dizziness, shortness of breath, chest pain, abdominal pain, bleeding, fevers, or worsening of medical condition. Patient was counseled about treatment plan, medications, possible side effects, patientverbalized understanding. All questions were answered to the best of my ability. This discharge took greater then 30 minutes in planning, reviewing documentation, counseling the patient, and discussing with other team members." ASSESSMENT ASSESSMENT Assessment CASSIE BAUMANN RESIDENT October 22, 2024 15:54
== END 2024-10-21 17:34 | disposition left against medical advice (07) | DRG 871 ==
LOC: ER 19:07 → EDBD 19:07 → OVERFLOW 21:32 → TELE-CENTR 23:44
PROVIDERS: ADMIT Student in an Organized Health Care Education/Training Program; ATTEND Emergency Medicine
DX: A41.9 Sepsis, unspecified organism (principal); G93.41 Metabolic encephalopathy; L03.115 Cellulitis of right lower limb; L03.113 Cellulitis of right upper limb; M86.671 Other chronic osteomyelitis, right ankle and foot; I82.611 Acute embolism and thrombosis of superficial veins of right upper extremity; N17.9 Acute kidney failure, unspecified; E10.69 Type 1 diabetes mellitus with other specified complication; F41.9 Anxiety disorder, unspecified; D64.9 Anemia, unspecified; N18.9 Chronic kidney disease, unspecified; I12.9 Hypertensive chronic kidney disease with stage 1 through stage 4 chronic kidney disease, or unspecified chronic kidney disease; E10.22 Type 1 diabetes mellitus with diabetic chronic kidney disease; E10.649 Type 1 diabetes mellitus with hypoglycemia without coma; F03.90 Unspecified dementia, unspecified severity, without behavioral disturbance, psychotic disturbance, mood disturbance, and anxiety; E10.65 Type 1 diabetes mellitus with hyperglycemia; F32.A Depression, unspecified; I16.0 Hypertensive urgency; E10.51 Type 1 diabetes mellitus with diabetic peripheral angiopathy without gangrene; Z86.73 Personal history of transient ischemic attack (TIA), and cerebral infarction without residual deficits; Z83.3 Family history of diabetes mellitus; Z79.82 Long term (current) use of aspirin; Z79.899 Other long term (current) drug therapy; Z79.4 Long term (current) use of insulin
CPT/HCPCS: 36415; 70450; 71045; 73080; 75635; 76775; 80048; 80053; 80202; 80320; 82962; 83036; 83605; 83735; 84439; 84443; 84480; 85025; 85610; 85730; 86703; 87040; 93005; 93925; 93971; 96365; 97116; 97163; 97530; G0378; J1815; J3490